=== PATIENT | female | born 1995 | race Caucasian/White ===

== ENCOUNTER → 2023-11-12 10:06 | Outpatient (REF) | payer OTHER, SELFPAY | LOC: PNTC 10:06 | PROVIDERS: ATTENDING PHYSICIAN Obstetrics & Gynecology | DX: O99.210 Obesity complicating pregnancy, unspecified trimester (principal); O34.219 Maternal care for unspecified type scar from previous cesarean delivery | CPT/HCPCS: 76811 ==

== ENCOUNTER → 2023-12-25 10:17 | Outpatient (REF) | payer OTHER, SELFPAY | LOC: PNTC 10:17 | PROVIDERS: ATTENDING PHYSICIAN Obstetrics & Gynecology | DX: O99.210 Obesity complicating pregnancy, unspecified trimester (principal) | CPT/HCPCS: 76816 ==

== ENCOUNTER 2024-01-14 08:41 | Observation (INO) | payer OTHER, SELFPAY ==
[2024-01-14 09:10] VITALS: BP 121/68; BMI 38.6
[2024-01-14 09:14] LABS: % Basophils 0.3 % (0-2); % Eosinophils 0.8 % (0-6); % Immature Granulocytes 0.5 % (0-0.5); % Lymphocytes 8.9 % (20.5-51.1); % Monocytes 3.7 % (1.7-9.3); % Neutrophils 85.8 % (42.2-75.2); Absolute Eosinophils 0.1 10^3/uL (0-0.7); Absolute Lymphocytes 0.8 10^3/uL (1.2-3.4); Absolute Monocytes 0.3 10^3/uL (0.1-0.6); Absolute Neutrophils 7.5 10^3/uL (1.4-6.5); Hematocrit 33.5 % (37.0-47.0); Hemoglobin 11.3 g/dL (12.0-16.0); Mean Corp Hgb Conc. 33.7 g/dL (33.0-37.0); Mean Corpuscular Hgb 31.8 pg (27.0-31.0); Mean Corpuscular Volume 94.4 fL (81.0-99.0); Mean Platelet Volume 9.4 fL (7.4-10.4); Nucleated Red Blood Cells % 0 %; Platelet Count 187 10^3/uL (130-400); Red Blood Cell Count 3.55 10^6/uL (4.20-5.40); Red Cell Dist. Width 13.7 % (11.5-14.5); White Blood Cell Count 8.7 10^3/uL (4.8-10.8)
[2024-01-14 09:50] LABS: ALT (SGPT) 16 U/L (0-35); AST (SGOT) 21 U/L (14-36); Albumin 3.6 g/dl (3.5-5.0); Alkaline Phosphatase 92 U/L (38-126); Blood Urea Nitrogen 8 mg/dl (7-17); Calcium 8.1 mg/dl (8.4-10.2); Carbon Dioxide 21 mmol/L (22-30); Chloride 106 mmol/L (98-107); Estimated Creatinine Clearance > 125 ml/min; Glucose 85 mg/dl (70-99); Potassium 4.7 mmol/L (3.5-5.1); Sodium 137 mmol/L (135-145); Total Bilirubin 0.3 mg/dl (0.2-1.3); Total Protein 6.3 g/dl (6.3-8.2); eGFR > 60.00
[2024-01-14 09:57] LABS: Urine Protein < 5 mg/dl
[2024-01-14] MEDS: MAALOX 30 ML PO (10:10)
[2024-01-14 10:42] LABS: Amylase 45 U/L (30-110); Lipase 92 U/L (23-300)
== END 2024-01-14 12:34 | disposition home or self-care (01) ==
LOC: LDRP 08:41
PROVIDERS: ADMITTING PHYSICIAN Obstetrics & Gynecology
DX: R10.13 Epigastric pain (principal); O99.213 Obesity complicating pregnancy, third trimester; Z3A.29 29 weeks gestation of pregnancy; R16.1 Splenomegaly, not elsewhere classified
CPT/HCPCS: 76700; 80053; 82150; 82570; 83690; 84156; 85025; 86850; 86900; 86901; G0378

== ENCOUNTER → 2024-02-14 10:16 | Outpatient (REF) | payer OTHER, SELFPAY | LOC: PNTC 10:16 | PROVIDERS: ATTENDING PHYSICIAN Obstetrics & Gynecology | DX: O99.210 Obesity complicating pregnancy, unspecified trimester (principal) | CPT/HCPCS: 59025; 76816; 76818 ==

== ENCOUNTER → 2024-02-21 11:18 | Outpatient (REF) | payer OTHER, SELFPAY | LOC: PNTC 11:18 | PROVIDERS: ATTENDING PHYSICIAN Obstetrics & Gynecology | DX: O99.210 Obesity complicating pregnancy, unspecified trimester (principal) | CPT/HCPCS: 59025; 76815 ==

== ENCOUNTER → 2024-02-28 11:06 | Outpatient (REF) | payer OTHER, SELFPAY | LOC: PNTC 11:06 | PROVIDERS: ATTENDING PHYSICIAN Obstetrics & Gynecology | DX: O99.210 Obesity complicating pregnancy, unspecified trimester (principal) | CPT/HCPCS: 59025; 76815 ==

== ENCOUNTER → 2024-03-06 10:49 | Outpatient (REF) | payer OTHER, SELFPAY | LOC: PNTC 10:49 | PROVIDERS: ATTENDING PHYSICIAN Obstetrics & Gynecology | DX: O99.210 Obesity complicating pregnancy, unspecified trimester (principal) | CPT/HCPCS: 59025; 76815 ==

== ENCOUNTER → 2024-03-13 11:01 | Outpatient (REF) | payer OTHER, SELFPAY | LOC: PNTC 11:01 | PROVIDERS: ATTENDING PHYSICIAN Obstetrics & Gynecology | DX: O99.210 Obesity complicating pregnancy, unspecified trimester (principal) | CPT/HCPCS: 59025; 76816 ==

== ENCOUNTER 2024-03-17 11:16 | Outpatient (RCR) | payer OTHER, SELFPAY ==
[2024-03-17 12:56] LABS: % Basophils 0.4 % (0-2); % Immature Granulocytes 0.1 % (0-0.5); % Lymphocytes 21.8 % (20.5-51.1); % Monocytes 6.7 % (1.7-9.3); Absolute Eosinophils 0.1 10^3/uL (0-0.7); Absolute Lymphocytes 1.8 10^3/uL (1.2-3.4); Absolute Monocytes 0.6 10^3/uL (0.1-0.6); Absolute Neutrophils 5.8 10^3/uL (1.4-6.5); Hematocrit 35.3 % (37.0-47.0); Hemoglobin 11.7 g/dL (12.0-16.0); Mean Corp Hgb Conc. 33.1 g/dL (33.0-37.0); Mean Corpuscular Hgb 31.1 pg (27.0-31.0); Mean Corpuscular Volume 93.9 fL (81.0-99.0); Mean Platelet Volume 9.7 fL (7.4-10.4); Platelet Count 221 10^3/uL (130-400); Red Blood Cell Count 3.76 10^6/uL (4.20-5.40); Red Cell Dist. Width 13.8 % (11.5-14.5); White Blood Cell Count 8.3 10^3/uL (4.8-10.8)
== END 2024-03-28 23:59 | disposition home or self-care (01) ==
LOC: OID 11:16
PROVIDERS: ATTENDING PHYSICIAN Internal Medicine Hematology & Oncology
DX: D64.9 Anemia, unspecified (principal)
CPT/HCPCS: 85025

== ENCOUNTER → 2024-03-20 10:26 | Outpatient (REF) | payer OTHER, SELFPAY ==
[2024-03-20 11:01] LABS: % Basophils 0.2 % (0-2); % Eosinophils 0.9 % (0-6); % Immature Granulocytes 0.2 % (0-0.5); % Lymphocytes 15.6 % (20.5-51.1); % Monocytes 4.5 % (1.7-9.3); % Neutrophils 78.6 % (42.2-75.2); Absolute Eosinophils 0.1 10^3/uL (0-0.7); Absolute Lymphocytes 1.4 10^3/uL (1.2-3.4); Absolute Monocytes 0.4 10^3/uL (0.1-0.6); Absolute Neutrophils 6.8 10^3/uL (1.4-6.5); Hematocrit 33.1 % (37.0-47.0); Hemoglobin 11.4 g/dL (12.0-16.0); Mean Corp Hgb Conc. 34.4 g/dL (33.0-37.0); Mean Corpuscular Hgb 31.4 pg (27.0-31.0); Mean Corpuscular Volume 91.2 fL (81.0-99.0); Nucleated Red Blood Cells % 0 %; Platelet Count 187 10^3/uL (130-400); Red Blood Cell Count 3.63 10^6/uL (4.20-5.40); Red Cell Dist. Width 14.4 % (11.5-14.5); White Blood Cell Count 8.7 10^3/uL (4.8-10.8)
== END ==
LOC: PNTC 10:26
PROVIDERS: Obstetrics & Gynecology; ATTENDING PHYSICIAN Obstetrics & Gynecology
DX: O99.210 Obesity complicating pregnancy, unspecified trimester (principal)
CPT/HCPCS: 36415; 59025; 76815; 85025

== ENCOUNTER → 2024-03-21 16:16 | Outpatient (REF) | payer OTHER, SELFPAY ==
[2024-03-21 12:05] LABS: % Basophils 0.3 % (0-2); % Eosinophils 0.9 % (0-6); % Immature Granulocytes 0.4 % (0-0.5); % Lymphocytes 16.2 % (20.5-51.1); % Monocytes 7.2 % (1.7-9.3); Absolute Eosinophils 0.1 10^3/uL (0-0.7); Absolute Lymphocytes 1.3 10^3/uL (1.2-3.4); Absolute Monocytes 0.6 10^3/uL (0.1-0.6); Absolute Neutrophils 5.9 10^3/uL (1.4-6.5); Hemoglobin 11.4 g/dL (12.0-16.0); Mean Corp Hgb Conc. 33.5 g/dL (33.0-37.0); Mean Corpuscular Hgb 31.3 pg (27.0-31.0); Mean Corpuscular Volume 93.4 fL (81.0-99.0); Mean Platelet Volume 9.9 fL (7.4-10.4); Platelet Count 196 10^3/uL (130-400); Red Blood Cell Count 3.64 10^6/uL (4.20-5.40); Red Cell Dist. Width 14.4 % (11.5-14.5); White Blood Cell Count 7.9 10^3/uL (4.8-10.8)
== END ==
LOC: OIDL 16:16
PROVIDERS: ATTENDING PHYSICIAN Internal Medicine Hematology & Oncology
DX: D64.9 Anemia, unspecified (principal)
CPT/HCPCS: 85025

== ENCOUNTER 2024-03-25 05:10 | Inpatient (IN) | payer OTHER, SELFPAY ==
--- NOTE | 2024-03-24 17:25 | HPS.HSE ---
Family Physician
-
Family Physician: NOT KNOW UNKNOWN - PT DOES
Chief Complaint
-
repeat
History of Present Illness
Patient is a 28yo with an EDC of 03/27/2024 who presents for scheduled repeat section. She has a history of 2 prior c-sections. She also has completed her family status and desires tubal ligation.
complications:
- CSx2
- Anemia, s/p IV iron
- Obesity, BMI 36
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
PMHx: asthma
Meds: PNV, albuterol 2 puffs q6h prn, PNV, pepcid 10mg daily
Surhgx: C/Sx2, appendectomy, hernia repair
NKDA
Socialhx: denies tobacco, etoh or illicit drug use
Famhx: non-contributory
OBHx: FT CSx2
Medical History
Past Medical History
Past Medical History: Reports Asthma
Past Surgical History: Reports Appendectomy and
Additional Past Surgical History:
hernia repair
Social History
Tobacco: Non-smoker
Alcohol: None
Drug: None
Family History
Family History: Not pertinent
Allergies / Home Medications
Allergies reflects when Allergies were last updated in [facility].
Home Medications with original date entered in [facility]
Allergy/Medication List:
Meds: PNV, albuterol 2 puffs q6h prn, PNV, pepcid 10mg daily
NKDA
Review of Systems
-
A 12 point ROS was completed and negative except as noted: Yes
Physical Exam
Physical Exam
General: Well Developed and Well Nourished
HEENT: NormoCephalic
Respiratory: Non Labored Respirations
Cardiac: Regular Rhythm
GI: Non Tender
Genito-urinary: Deferred by me
Skin: Warm and Dry
Neuro: Awake and Alert
Psych: Calm
Impression/Plan
-
IMPRESSION:
Patient is a 28yo with an EDC of 03/27/24 who presents for repeat section and bilateral salpingectomy
PLAN:
- 2g Ancef prior to incision
- Admission labs
- Patient previously consented for repeat section and bilateral salpingectomy. Risks, benefits, and alternatives including bleeding, infection, damage to surrounding structures and need for future operations discussed. She is aware that a
bilateral salpingectomy is permanent and she will no longer be able to conceive children naturally. Risk of tubal regret was discussed. She declined alternative forms of contraception. Risk of ectopic discussed.
- Plans to proceed with repeat section and bilateral salpingectomy
[2024-03-25 05:25] VITALS: BP 132/78; BMI 41.4
[2024-03-25 06:07] LABS: Hematocrit 33.7 % (37.0-47.0); Hemoglobin 11.7 g/dL (12.0-16.0); Mean Corp Hgb Conc. 34.7 g/dL (33.0-37.0); Mean Corpuscular Hgb 31.5 pg (27.0-31.0); Mean Corpuscular Volume 90.6 fL (81.0-99.0); Mean Platelet Volume 10.2 fL (7.4-10.4); Platelet Count 173 10^3/uL (130-400); Red Blood Cell Count 3.72 10^6/uL (4.20-5.40); Red Cell Dist. Width 14.9 % (11.5-14.5); White Blood Cell Count 8.8 10^3/uL (4.8-10.8)
[2024-03-25] MEDS: TYLENOL 1000 MG PO (07:04)
[2024-03-25] MEDS: LR 1000 IV (07:04)
[2024-03-25] MEDS: ANCEF 10 IV (07:05)
[2024-03-25] MEDS: BICITRA 30 ML PO (07:05)
[2024-03-25] MEDS: TYLENOL 650 MG PO ×3 (14:01→23:43)
--- NOTE | 2024-03-25 14:04 | OR.RPT ---
Operative Report
Operative Report
Preop diagnosis: IUP @39.6, history of 2 prior c-sections, desires permanent sterilization
Postop diagnosis: same
Procedure: Repeat low transverse section, bilateral salpingectomy
Surgeon: Roseann
Anesthesia: Spinal, Chambers
QBL: 525mL
Findings: Viable female infant born at 0810, with Apgars 8/9. Bladder adhered to lower uterine segment. Fimbriae of right fallopian tube adhered to right ovary taken down the Voyant and Metzenbaum scissors. Normal appearing uterus, bilateral
fallopian tubes and ovaries.
Complications: none
Parsons catheter draining clear urine before and after the procedure
Indication: Patient is a 28yo at 39.6 weeks who presented to Labor and Delivery for scheduled repeat section. She has a history of two prior sections. She has completed her family status and desires permanent sterilization.
She is aware it is a permanent procedure and she will no longer be able to conceive children naturally. Risks, benefits, and alternatives were discussed and consents were previously signed.
Procedure: Patient was taken to the operating room where spinal anesthesia was administered and found to be adequate. 2g of Ancef were given for infection prophylaxis. The abdomen was prepped with ChloraPrep. The patient was draped in the normal
sterile fashion. She was placed in the dorsal supine position with a left lateral tilt. A Pfannenstiel incision was made with a 10 blade and carried down to the fascia with a scalpel. Hemostasis achieved with Bovie. The fascia was incised and
dissected laterally with Boston scissors. The superior aspect of the fascia was grasped with Isabell clamps. The underlying rectus fascia was sharply dissected with Boston scissors. In a similar fashion the inferior aspect of the fascia was elevated with
Isabell clamps and the rectus muscle was dissected off with Boston scissors. The rectus muscles were down the midline to the level of the pubic symphysis with manual dissection. The peritoneum was bluntly entered and extended with manual
traction and Bovie cautery.
Kelly retractor and bladder blade were placed revealing good visualization of the bladder. The bladder was adhered to the lower uterine segment. A bladder flap was developed with Metzenbaum scissors. A thin lower uterine segment was noted. The
lower uterine segment was incised with a scalpel. Clear amniotic fluid noted at entry into the cavity. The uterine incision was extended bluntly with lateral and upward traction.
The fetus was in cephalic presentation. The head was brought to the hysterotomy. Gentle fundal pressure was applied and the head delivered. The rest of the body delivered without difficulty. Delayed cord clamping was performed. The infant was
handed off to the case work aide. Cord gases and cord blood were collected. IV oxytocin was started to facilitate uterine contractions. The placenta was expressed with fundal massage and gentle traction. The uterus was exteriorized. Allis clamps were
placed at the apices of the hysterotomy. The inside of the uterus was wiped with a lap sponge to assure complete removal of placental membranes. Fundal massage was performed and uterus noted to be firm. The uterine incision was closed with 0 Vicryl
in a running locked fashion. A horizontal imbricating stitch was done on the hysterotomy. Oozing noted from the hysterotomy and 2 figure of eights were placed with 2-0 Vicryl to achieve hemostasis. The hysterotomy was inspected and noted to be
hemostatic. Attention was turned to the right fallopian tube. The right fallopian tube was followed out to the fimbriated end with Babcocks. The fimbriated end of the right fallopian tube was adherent to the right ovary. Adhesions were taken down
with Metzenbaum scissors and the Voyant device. There was a small amount of oozing from the right ovary. Bovie cautery was used to achieve hemostasis. The fallopian tube was removed in a stepwise fashion along the mesosalpinx using the Voyant
device. Hemostasis was noted at the salpingectomy site. The procedure was repeated on the left side and the left fallopian tube was removed using the Voyant device. Oozing from the left cornua was noted. Voyant device used to achieve hemostasis.
Bilateral fallopian tubes were sent to pathology for evaluation. The uterus was placed back in the abdomen. Blood clots and fluid were wiped out of the abdomen and pelvis with moist laparotomy sponges. The salpingectomy sites were inspected and
noted to be hemostatic. The hysterotomy was examined again and was hemostatic.
The rectus muscles were inspected and noted to be hemostatic. Oozing from the peritoneal edge was noted and Bovie cautery used to achieve hemostasis. The fascial layer was closed in a running continuous fashion using 0 Vicryl. The subcutaneous
tissue was copiously irrigated and any small bleeding vessels were cauterized with Bovie cautery. The subcutaneous tissue was reapproximated in a running continuous fashion with 2-0 Plain. The skin was closed with 4-0 Vicryl in a subcuticular
fashion. The incision was covered with skin glue. The patient tolerated the procedure well. All sponge and instrument counts were correct times two. The patient was taken to the recovery room in stable condition.
[2024-03-25] MEDS: ZOFRAN 4 MG IV (14:36)
[2024-03-25] MEDS: TORADOL 15 MG IV ×2 (15:57→20:44)
[2024-03-25] MEDS: MYLICON 80 MG PO (19:45)
[2024-03-25] MEDS: ProAIR HFA INHALER 1 PUFF INH (20:22)
[2024-03-25] MEDS: PEPCID PO (20:41)
[2024-03-26] MEDS: TORADOL 15 MG IV (03:35)
[2024-03-26 07:10] LABS: Hematocrit 26.3 % (37.0-47.0); Hemoglobin 9.2 g/dL (12.0-16.0); Mean Corpuscular Hgb 32.5 pg (27.0-31.0); Mean Corpuscular Volume 92.9 fL (81.0-99.0); Mean Platelet Volume 10.2 fL (7.4-10.4); Platelet Count 145 10^3/uL (130-400); Red Blood Cell Count 2.83 10^6/uL (4.20-5.40); Red Cell Dist. Width 15.2 % (11.5-14.5); White Blood Cell Count 9.7 10^3/uL (4.8-10.8)
[2024-03-26] MEDS: PEPCID 20 MG PO ×2 (07:51→20:44)
[2024-03-26] MEDS: MIRALAX 17 GRAMS PO (07:51)
[2024-03-26] MEDS: PRENATAL PLUS 1 TABLET PO (07:51)
[2024-03-26] MEDS: TORADOL IV (09:03)
[2024-03-26] MEDS: TYLENOL 650 MG PO ×3 (09:33→21:27)
[2024-03-26] MEDS: MOTRIN 600 MG PO ×3 (09:33→21:27)
[2024-03-26] MEDS: FEOSOL 325 MG PO (11:45)
[2024-03-26] MEDS: SENOKOT-S 1 TABLET PO (11:47)
[2024-03-27] MEDS: PERCOCET 5/325 1 TABLET PO ×3 (02:45→12:37)
[2024-03-27] MEDS: MOTRIN 600 MG PO ×2 (03:36→12:37)
[2024-03-27] MEDS: MIRALAX 17 GRAMS PO (08:11)
[2024-03-27] MEDS: PEPCID 20 MG PO (08:11)
[2024-03-27] MEDS: PRENATAL PLUS 1 TABLET PO (08:11)
[2024-03-27] MEDS: FEOSOL 325 MG PO (08:11)
[2024-03-28 16:47] LABS: Syphilis/T. pallidum Ab Reflex Negative (Negative)
== END 2024-03-27 14:56 | disposition home or self-care (01) | DRG 785 ==
LOC: LDRP 05:10
PROVIDERS: ADMITTING PHYSICIAN Student in an Organized Health Care Education/Training Program
PROC: 0UT70ZZ Resection of Bilateral Fallopian Tubes, Open Approach (ICD-10-PCS; 2024-03-25)
PROC: 10D00Z1 Extraction of Products of Conception, Low, Open Approach (ICD-10-PCS; 2024-03-25)
DX: O34.211 Maternal care for low transverse scar from previous cesarean delivery (principal); Z3A.39 39 weeks gestation of pregnancy; Z37.0 Single live birth; O90.81 Anemia of the puerperium; D64.9 Anemia, unspecified
CPT/HCPCS: 88302; 36415; 58605; 85027; 86780; 86850; 86900; 86901; 94640